=== PATIENT | female | born 1965 | race Caucasian/White ===

== ENCOUNTER 2021-06-21 09:02 | Outpatient (REF) | payer BC, SELFPAY ==
--- NOTE | ~2021-06-21 | FL_ITS ---
PROCEDURE: FL BARIUM SWALLOW CLINICAL INFORMATION: Dysphagia. COMPARISON: None TECHNIQUE: Barium swallow examination is performed using fluoroscopic evaluation in addition to multiple fluoroscopic spot views. The patient is imaged both upright and prone and using both thick and thin sulfate along with effervescent granules. FLUOROSCOPY TIME: 1.4 minutes DAP: 3.627 Gycm2 IMAGES: 23 FINDINGS: There is normal apposition of vocal cords while saying E . There is normal elevation of the soft palate when saying candy . No nasopharyngeal reflux or tracheal aspiration present. No significant cricopharyngeal hypertrophy or Zenker's diverticulum. No definite abnormal neck mass is identified. The esophagus demonstrates normal motility without abnormal stricture or mucosal abnormality. No hiatal hernia was seen. There is minimal gastroesophageal reflux elicited during the study within the distal third of the esophagus which cleared rapidly. The stomach demonstrated normal distensibility without focal mass or ulceration. No delay in gastric emptying was evident. The duodenal bulb and sweep appeared unremarkable. FL/FL barium swallow IMPRESSION: Minimal gastroesophageal reflux. Otherwise unremarkable esophagram and upper GI examination.
== END 2021-06-21 09:03 | disposition home or self-care (01) ==
LOC: HO.XRAY 09:02
PROVIDERS: PCP Internal Medicine; Visit Provider Otolaryngology
DX: R13.10 Dysphagia, unspecified (principal)
CPT/HCPCS: 74220

== ENCOUNTER 2021-09-19 08:01 | Outpatient (REF) | payer BC, SELFPAY ==
--- NOTE | ~2021-09-19 | CT_ITS ---
EXAMINATION: CT SINUS WITHOUT CONTRAST CLINICAL INFORMATION: Deviated septum. Sinonasal polyps COMPARISON: None TECHNIQUE: Axial 2 mm thin and reformatted 2 mm thin sagittal and coronal images of sinuses were obtained. This CT examination was performed using dose optimization techniques as appropriate, variously including the following: *Automated exposure control *Adjustment of mA and/or kV according to patient size (this includes techniques or standardized protocols for targeted exams where dose is matched to indication/reason for exam; i.e. extremities or head) *Use of iterative reconstruction technique DLP: 92 mGy-cm FINDINGS: FRONTAL SINUSES AND DRAINAGE PATHWAYS: The frontal sinuses are well-aerated without mucoperiosteal thickening or air-fluid levels. The frontoethmoidal recesses are widely patent. MAXILLARY SINUSES AND DRAINAGE PATHWAYS: The maxillary sinuses are widely patent with minimal mucosal thickening in the floor of both sinuses. There is functional endoscopic sinus surgery with resection of medial lynn of the sinuses. The ostiomeatal complex is patent. ETHMOID SINUSES: Normal. The ethmoid roofs are symmetric, with olfactory fossa depth of 4 mm on the right and 3 mm on the left. SPHENOID SINUSES AND DRAINAGE PATHWAYS: Normal. The sphenoid ostia are patent. The carotid canals are covered by bone. NASAL CAVITY/NASOPHARYNX: The nasal cavity is clear. There is mild S-shaped nasal septal deviation/spurring. The nasopharynx is symmetric. ADDITIONAL RELEVANT FINDINGS: There are dental amalgam-related artifacts. No periapical disease is seen. The TMJs articulate normally. The orbits and skull base soft tissues are unremarkable. The middle ear cavities and mastoid air cells are clear. Limited evaluation demonstrates no acute intracranial findings. CT/CT sinus wo con IMPRESSION: 1. Minimal mucoperiosteal thickening in the floor of bilateral maxillary sinuses. There is functional endoscopic sinus surgery with widely patent maxillary sinuses and nasal cavity. 2. The rest of the paranasal sinuses are clear. 3. Mild S-shaped nasal septal deviation/spurring.
== END 2021-09-19 08:02 | disposition home or self-care (01) ==
LOC: HO.CT 08:01
PROVIDERS: PCP Internal Medicine; Visit Provider Otolaryngology
DX: J33.0 Polyp of nasal cavity (principal); J34.2 Deviated nasal septum
CPT/HCPCS: 70486